=== PATIENT | female | born 1955 | race Caucasian/White ===

== ENCOUNTER → 2023-06-28 | Outpatient (CLI) | payer OTHER ==
[~2023-06-28] MED LIST: (None)64.8 MG; AMLO5 PO; ASPI81CH; Diclofenac Pota50 MG PO; Ecotrin325 MG PO; Percocet 5-3251 EACH PO
[2023-07-14 05:30] LABS: HPV GENOTYPE 16 BY PCR Negative; HPV GENOTYPE 18 BY PCR Negative; HPV SOURCE Cervical; HPV, OTHER HIGH RISK BY PCR Negative
== END ==
LOC: LAB 13:02 → LAB SHORT 13:02
PROVIDERS: Nurse Practitioner Family
DX: Z01.419 Encounter for gynecological examination (general) (routine) without abnormal findings (principal)
CPT/HCPCS: 87624; 88142

== ENCOUNTER 2023-08-16 07:41 | Day surgery (SDC) | payer OTHER, MEDICARE ==
[2023-08-16] VITALS (18 sets, daily range): BP systolic 104–146; BP diastolic 60–86
[~2023-08-16] VITALS: Ht 170.2 cm; Wt 79.5 kg
--- NOTE | 2023-08-16 09:09 | NUR ---
Ambulatory in Day SurgeryPre-Op teaching done. Pt verbalizes understanding. History, Chart, Medications and Allergies reviewed before start of procedure.Patient confirms NPO status and agrees with scheduled surgery. PT HAS SEVERAL SMALL SCABS ON HER BODY: ARMS, BUTTOX, RIGHT LEG. STATES THEY ARE FROM HER GLUTEN ALLERGY. LEFT KNEE INCISIONAL AREA IS CLEAR AND INTACT
--- NOTE | 2023-08-16 12:57 | NUR ---
PATIENT ARRIVAL TO ROOM FROM PACU ABOUT 1220. VITALS STABLE. IVF RUNNING. TOLERATING EATING AND DRINKING. DENIES PAIN AT THIS TIME. ABLE TO WIGGLE TOES AND LIFT FEET.AWAITING FULL SENSATION TO AMBULATE.
--- NOTE | 2023-08-16 16:36 | NUR ---
Pt. is sitting in a recliner after having just walked in the hallway with her nurse. Pt. is pleasant and welcomes my visit. Pt. displays evidence of being very positive about her knew procedure. Considered matters of health care and her health history. Pt. displays evidence of being aware and engaged in her care. Considered matters of gypsy and belief. Prayed with Pt. Pt. verbalized gratitude for the spiritual care visit and welcomed this body press operator to return.
--- NOTE | 2023-08-16 16:43 | NUR ---
SHIFT SUMMARY PATIENT IS AOX4, VSS, ABLE TO AMBULATE IN [place], AND INTO BATHROOM TO VOID. 1 ASSIST. FWW, GB. SITTING IN CHAIR LEG ELEVATED, POLAR MESERET IN PLACE. SCD'S ON. AQUACEL WITH CORNELIUS WRAP DRESSING TO L KNEE C/D/I. DENIES PAIN AT THIS TIME. CALL LIGHT IN REACH.
[2023-08-17 03:06] VITALS: BP 107/60
[2023-08-17 04:16] LABS: BASOPHILS ABSOLUTE AUTO 0.11 K/mm3 (0.00-0.23); BASOPHILS PERCENT AUTO 1 % (0-2); EOSINOPHILS ABSOLUTE AUTO 0.23 K/mm3 (0.00-0.68); EOSINOPHILS PERCENT AUTO 2 % (0-6); Hematocrit 32.6 % (33.0-51.0); IMMATURE GRAN ABSOLUTE AUTO 0.03 K/mm3 (0.00-0.10); IMMATURE GRAN PERCENT AUTO 0 % (0-1); LYMPHOCYTES ABSOLUTE AUTO 2.21 K/mm3 (0.84-5.20); LYMPHOCYTES PERCENT AUTO 23 % (21-46); MONOCYTES ABSOLUTE AUTO 0.83 K/mm3 (0.16-1.47); MONOCYTES PERCENT AUTO 9 % (4-13); Mean Corpuscular HGB 30.4 pg (26.0-34.0); Mean Corpuscular HGB Conc 33.7 g/dL (31.5-36.5); Mean Corpuscular Volume 90 fL (80-100); Mean Platelet Volume 11.2 fL (9.1-12.4); NEUTROPHILS ABSOLUTE AUTO 6.34 K/mm3 (1.96-9.15); NEUTROPHILS PERCENT AUTO 65 % (41-73); Platelet Count 211 K/mm3 (150-400); RDW Coefficient Variation 13.5 % (11.7-14.2); RDW Standard Deviation 44.8 fL (35.1-46.3); Red Blood Cell Count 3.62 M/mm3 (3.80-5.20); White Blood Cell Count 9.75 K/mm3 (4.00-11.30)
--- NOTE | 2023-08-17 04:39 | NUR ---
SHIFT SUMMARY POD1 L TKA. SENSATOIN AND CIRCULATION REMAINS C/D/I IN LLE. AQUACEL INTACT. VSS. PT SLEPT ON AND OFF T/O THE NIGHT. MEDICATED FOR PAIN WITH PRN'S AND SCHEDULED W/GOOD RESULTS. PT AMBULATED TO THE BATHROOM T/O THE NIGHT W/O DIFFICULTY. VOIDING WELL, NO BM'S NOTED. TOLLERATING PO W/O N/V. NO ACUTE EVENTS NOTED. PLAN FOR PT TO WORK WITH PHYSICAL THERAPY TODAY AND D/C HOME.
[2023-08-17 05:11] LABS: Bun/Creatinine Ratio 23.2 (12.0-20.0); Calcium, Blood 8.6 mg/dL (8.5-10.1); Creatinine, Blood 0.86 mg/dL (0.40-1.00); Potassium, Blood 4.3 mmol/L (3.5-5.5)
[2023-08-17 06:57] VITALS: BP 126/78
[2023-08-17] MEDS ORDERED: Aspir 8181 MG PO (09:36)
[2023-08-17] MEDS ORDERED: Percocet 5-3251 EACH PO (09:36)
--- NOTE | 2023-08-17 10:42 | NUR ---
DISCHARGE SUMMARY PT A&OX4, VSS/RA, ERICA PO, VOIDING, AMB SBA FWW/GB, DRESSED SELF, UP TO CHAIR, PHYSICAL THERAPY EVAL'D, IV DC'D, PAIN MANAGED. DC INS PROVIDED. PT REP UNDERSTANDING THOSE INSTRUCTIONS. LEFT FLOOR VIA WC WITH CAUSTIC CRESYLATE SHIFT SUPERINTENDENT TO GO HOME WITH WITH ALL PERSONAL POSSESSIONS INCLUDING DC PACKET, POLAR PACKET, AQUACEL DRESSINGS.
== END 2023-08-17 10:19 | disposition home or self-care (01) ==
LOC: ORSCMMR 07:41 → ORD 11:00 → ORSCMMR 11:00 → SURS 12:18 → ORD 12:30 → ORSCMMR 08-17 10:19 → ORD 08-23 11:00
PROVIDERS: Orthopaedic Surgery
PROC: 0SRD0JA Replacement of Left Knee Joint with Synthetic Substitute, Uncemented, Open Approach (ICD-10-PCS; principal; 2023-08-16 09:15)
DX: M17.12 Unilateral primary osteoarthritis, left knee (principal); Z96.651 Presence of right artificial knee joint; Z79.899 Other long term (current) drug therapy; I10 Essential (primary) hypertension; Z87.891 Personal history of nicotine dependence
CPT/HCPCS: 36415; 73560-LT; 80048; 85025; 97110; 97116; 97161; A9270; C1713; C1776; J0171; J0690; J0735; J1885; J2250; J2405; J2704; J2795; J3010; J7120